=== PATIENT | male | born 1990 | race African-American/Black ===

== ENCOUNTER 2017-07-05 04:03 | Emergency (ER) | payer OTHER ==
[~2017-07-05] VITALS: Ht 177.8 cm; Wt 89.1 kg
[~2017-07-05 04:03] MED LIST: INDOCIN25 MG PO; NORCO 7.5/321 TABLET PO; ULTRACET1 TABLET PO; VALIUM5 MG PO
[2017-07-05] MEDS ORDERED: FLEXERIL5 MG PO (04:16)
[2017-07-05 04:49] VITALS: BP 129/75
== END 2017-07-05 04:49 | disposition home or self-care (01) ==
LOC: EME 04:03
DX: S13.4XXA Sprain of ligaments of cervical spine, initial encounter (principal); V47.5XXA Car driver injured in collision with fixed or stationary object in traffic accident, initial encounter; Y92.410 Unspecified street and highway as the place of occurrence of the external cause
CPT/HCPCS: 99281; 99283